=== PATIENT | female | born 2000 | race African-American/Black ===

== ENCOUNTER 2020-07-17 13:42 | Emergency (ER) | payer OTHER, SELFPAY ==
[2020-07-18 06:51] LABS: SARS-CoV-2 PCR by NAA Not Detected (NotDetected)
== END 2020-07-17 15:20 | disposition home or self-care (01) ==
LOC: NAV ERS 13:42
DX: J06.9 Acute upper respiratory infection, unspecified (principal); Z20.822 Contact with and (suspected) exposure to COVID-19
CPT/HCPCS: 87635; 99284; U0003; U0005

== ENCOUNTER 2020-10-10 13:31 | Emergency (ER) | payer SELFPAY ==
[2020-10-10] MEDS ORDERED: Dexamethasone 4 mg/ml Vial ONE (14:44)
[2020-10-10] MEDS ORDERED: Ondansetron ODT 4 MG TAB ONE (14:44)
[2020-10-10] MEDS ORDERED: Acetaminophen 500 MG TAB ONE (14:44)
[2020-10-10 15:25] LABS: SARS-CoV-2 NAA Rapid Test Not Detected (NotDetected)
== END 2020-10-10 15:01 | disposition home or self-care (01) ==
LOC: NAV ERS 13:31
DX: R05 Cough (principal); M79.10 Myalgia, unspecified site; Z20.822 Contact with and (suspected) exposure to COVID-19
CPT/HCPCS: 0241U; 71045; J1100; Q0162

== ENCOUNTER 2020-12-12 16:46 | Emergency (ER) | payer MEDICAID, SELFPAY ==
[2020-12-12] MEDS ORDERED: Ondansetron ODT 4 MG TAB ONE (17:06)
[2020-12-12] MEDS ORDERED: Ketorolac Tromethamine 30 MG/ML VIAL ONE (17:06)
[2020-12-12] MEDS ORDERED: Acetaminophen 500 MG TAB ONE (17:06)
== END 2020-12-12 17:26 | disposition home or self-care (01) ==
LOC: NAV ERS 16:46
DX: R51.9 Headache, unspecified (principal)
CPT/HCPCS: 96372; 99283; J1885; Q0162

== ENCOUNTER 2021-03-29 08:28 | Emergency (ER) | payer MEDICAID, OTHER, SELFPAY ==
[2021-03-30 15:58] LABS: SARS-CoV-2 PCR by NAA DETECTED (NotDetected)
== END 2021-03-29 08:55 | disposition home or self-care (01) ==
LOC: NAV ERS 08:28
DX: U07.1 COVID-19 (principal)
CPT/HCPCS: 99283; U0003; U0005

== ENCOUNTER 2022-01-07 16:46 | Emergency (ER) | payer MEDICAID ==
[2022-01-07 17:36] LABS: Bilirubin Negative (Negative); Blood, Urine Negative (Negative); Clarity Clear (Clear); Glucose, Urine (Dipstick) Negative (Negative); Ketone, Urine Negative (Negative); Leukocyte Negative (Negative); Nitrite Negative (Negative); Protein, Urine (Dipstick) Negative (Neg-Trace); Specific Gravity, Urine 1.025 (1.005-1.030); Urobilinogen 0.2 mg/dL (Less than 2); pH, Urine 5.5 (5.0-9.0)
[2022-01-07 17:37] LABS: Pregnancy Test - Urine (BHCG) Negative (Negative); Pregu Control Background? CLEAR/WHITE (CLR/WHITE); Pregu Control Bar Appear? YES (CONTROL BAR); Specific Gravity 1.025 (1.002-1.036)
[2022-01-07 17:42] LABS: #Basophils 0.1 thou/uL (0.0-0.2); #Eosinphils 0.1 thou/uL (0.0-0.7); #Lymphocytes 1.9 thou/uL (1.20-3.40); #Monocytes 0.4 thou/uL (0.11-0.59); #Neutrophils 4.5 thou/uL (1.40-6.50); %Basophils 1.4 % (0.0-1.0); %Monocytes 5.9 % (0.0-10.0); %Neutrophils 64.7 % (42.0-75.0); Hemoglobin 12.7 g/dL (12.0-16.0); Mean Corpuscular HGB CONC 31.5 g/dL (32.0-36.0); Mean Platelet Volume 7.2 fL (7.4-10.4); Platelet Count 502 thou/uL (130-400); RBC Distribution Width 14.9 % (11.5-14.5); Red Blood Cell (RBC) Count 5.51 mill/uL (4.20-5.40); White Blood Cell (WBC) Count 6.9 thou/uL (4.8-10.8)
[2022-01-07 18:00] LABS: ALT (SGPT) 16 U/L (8-55); AST (SGOT) 14 U/L (5-34); Albumin 4.1 g/dL (3.5-5.0); Alkaline Phosphatase 88 U/L (40-110); Anion Gap 15 mmol/L (10-20); BUN (Urea Nitrogen) 12 mg/dL (7.0-18.7); Bilirubin, Total 0.3 mg/dL (0.2-1.2); Calc. Creatinine Clearance 0 mL/min (70-130); Carbon Dioxide 26 mmol/L (22-29); Chloride 104 mmol/L (98-107); Estimated GFR 112; Globulin 3.7 g/dL (2.4-3.5); Glucose 85 mg/dL (70-105); Lipase 11 U/L (8-78); Potassium 4.3 mmol/L (3.5-5.1); Protein, Total 7.8 g/dL (6.0-8.3); Sodium 141 mmol/L (136-145)
== END 2022-01-07 18:25 | disposition home or self-care (01) ==
LOC: NAV ERS 16:46
DX: K29.00 Acute gastritis without bleeding (principal)
CPT/HCPCS: 80053; 81003; 81025; 83690; 85025; 99284

== ENCOUNTER 2022-03-28 21:07 | Emergency (ER) | payer BC, MEDICAID | END 2022-03-28 22:18 | disposition home or self-care (01) | LOC: NAV ERS 21:07 | DX: S93.401A Sprain of unspecified ligament of right ankle, initial encounter (principal); X58.XXXA Exposure to other specified factors, initial encounter ==

== ENCOUNTER 2022-07-01 12:12 | Emergency (ER) | payer BC ==
[2022-07-01] MEDS ORDERED: Famotidine/PF 20 mg/2ml Vial ONE (12:48)
[2022-07-01] MEDS ORDERED: Ondansetron ODT 4 MG TAB ONE (12:48)
[2022-07-01 12:55] LABS: #Basophils 0.1 thou/uL (0.0-0.2); #Eosinphils 0.1 thou/uL (0.0-0.7); #Lymphocytes 0.9 thou/uL (1.20-3.40); #Monocytes 0.4 thou/uL (0.11-0.59); #Neutrophils 2.2 thou/uL (1.40-6.50); %Basophils 1.4 % (0.0-1.0); %Eosinophils 1.9 % (0.0-10.0); %Neutrophils 60.7 % (42.0-75.0); Hemoglobin 11.8 g/dL (12.0-16.0); Mean Corpuscular HGB CONC 31.1 g/dL (32.0-36.0); Mean Corpuscular Hemoglobin 22.1 pg (27.0-31.0); Mean Corpuscular Volume 70.8 fl (78.0-98.0); Mean Platelet Volume 6.8 fL (7.4-10.4); Platelet Count 415 10x3/uL (130-400); RBC Distribution Width 15.2 % (11.5-14.5); Red Blood Cell (RBC) Count 5.35 mill/uL (4.20-5.40); White Blood Cell (WBC) Count 3.6 10x3/uL (4.8-10.8)
[2022-07-01 13:00] LABS: BHCG - Serum Negative (NEGATIVE); Pregs Control Bar Appear? YES (CONTROL BAR)
[2022-07-01 13:06] LABS: ALT (SGPT) 21 U/L (8-55); AST (SGOT) 14 U/L (5-34); Albumin 3.7 g/dL (3.5-5.0); Alkaline Phosphatase 73 U/L (40-110); Anion Gap 12 mmol/L (10-20); BUN (Urea Nitrogen) 8 mg/dL (7.0-18.7); Bilirubin, Total 0.5 mg/dL (0.2-1.2); Calc. Creatinine Clearance 0 mL/min (70-130); Calcium 8.6 mg/dL (7.8-10.44); Carbon Dioxide 25 mmol/L (22-29); Chloride 105 mmol/L (98-107); Estimated GFR 118; Globulin 3.2 g/dL (2.4-3.5); Glucose 93 mg/dL (70-105); Lipase 8 U/L (8-78); Potassium 3.7 mmol/L (3.5-5.1); Protein, Total 6.9 g/dL (6.0-8.3); Sodium 138 mmol/L (136-145)
== END 2022-07-01 13:38 | disposition home or self-care (01) ==
LOC: NAV ERS 12:12
DX: K29.00 Acute gastritis without bleeding (principal); G44.52 New daily persistent headache (NDPH); D64.9 Anemia, unspecified
CPT/HCPCS: 36415; 80053; 83690; 84703; 85025; 96374; Q0162; S0028

== ENCOUNTER 2022-07-19 18:00 | Emergency (ER) | payer BC ==
[2022-07-19] MEDS ORDERED: Ibuprofen 800 MG TAB ONE (18:15)
== END 2022-07-19 19:06 | disposition home or self-care (01) ==
LOC: NAV ERS 18:00
DX: M25.571 Pain in right ankle and joints of right foot (principal)

== ENCOUNTER 2022-09-11 20:54 | Emergency (ER) | payer BC | END 2022-09-11 21:56 | disposition home or self-care (01) | LOC: NAV ERS 20:54 | DX: S90.861A Insect bite (nonvenomous), right foot, initial encounter (principal); W57.XXXA Bitten or stung by nonvenomous insect and other nonvenomous arthropods, initial encounter | CPT/HCPCS: 99283 ==

== ENCOUNTER 2023-03-28 19:22 | Emergency (ER) | payer BC ==
[2023-03-28] MEDS ORDERED: Ibuprofen 200 MG TAB ONE (19:38)
== END 2023-03-28 22:30 | disposition home or self-care (01) ==
LOC: NAV ERS 19:22
DX: S83.92XA Sprain of unspecified site of left knee, initial encounter (principal); R00.0 Tachycardia, unspecified; R50.9 Fever, unspecified; I10 Essential (primary) hypertension; X58.XXXA Exposure to other specified factors, initial encounter

== ENCOUNTER 2024-12-21 18:53 | Emergency (ER) | payer SELFPAY ==
[2024-12-21] MEDS ORDERED: HYDROcodone/Acetaminophen 5/325 mg Tablet ONE (20:23)
== END 2024-12-21 20:41 | disposition home or self-care (01) ==
LOC: NAV ERS 18:53
DX: S43.015A Anterior dislocation of left humerus, initial encounter (principal); I10 Essential (primary) hypertension; Y04.0XXA Assault by unarmed brawl or fight, initial encounter
CPT/HCPCS: 23650; 96374; 96376

== ENCOUNTER 2024-12-25 06:24 | Emergency (ER) | payer SELFPAY ==
[2024-12-25] MEDS ORDERED: KETAMINE 100 MG/ML (5ML VIAL) ONE (08:32)
[2024-12-25] MEDS ORDERED: Ketorolac Tromethamine 30 MG (1 mL) VIAL ONE (09:51)
== END 2024-12-25 11:22 | disposition home or self-care (01) ==
LOC: NAV ERS 06:24
DX: S43.015A Anterior dislocation of left humerus, initial encounter (principal); S42.292A Other displaced fracture of upper end of left humerus, initial encounter for closed fracture; I10 Essential (primary) hypertension; X58.XXXA Exposure to other specified factors, initial encounter
CPT/HCPCS: 23650; 96374; 96375; 99152; J1885; J2060; J2250